=== PATIENT | female | born 1965 | race Caucasian/White ===

== ENCOUNTER 2023-03-01 14:23 | Emergency (ER) | payer MEDICARE ==
[~2023-03-01] VITALS: Ht 165.1 cm; Wt 68.0 kg
[2023-03-01 14:34] VITALS: BP 184/106
[2023-03-01 14:46] VITALS: BP 162/102
[2023-03-01 15:15] VITALS: BP 172/99
[2023-03-01 15:30] VITALS: BP 160/115
[2023-03-01 16:16] VITALS: BP 173/97
[2023-03-01] MEDS ORDERED: MOTRIN800 MG PO (16:21)
[2023-03-01] MEDS ORDERED: BACTRIM DS1 TAB PO (16:21)
[2023-03-01] MEDS ORDERED: PERCOCET 5/325M1 TAB PO (16:23)
[2023-03-01 16:27] VITALS: BP 173/97
== END 2023-03-01 16:33 | disposition home or self-care (01) ==
LOC: ED 14:23
DX: S61.213A Laceration without foreign body of left middle finger without damage to nail, initial encounter (principal); S63.613A Unspecified sprain of left middle finger, initial encounter; S63.615A Unspecified sprain of left ring finger, initial encounter; W23.0XXA Caught, crushed, jammed, or pinched between moving objects, initial encounter